=== PATIENT | male | born 1965 | race Hispanic/Latino ===

== ENCOUNTER 2019-06-18 07:56 | Emergency (ER) | payer SELFPAY ==
[2019-06-18 08:54] LABS: #Basophils 0.1 thou/uL (0.0-0.2); #Eosinphils 0.1 thou/uL (0.0-0.7); #Lymphocytes 1.9 thou/uL (1.20-3.40); #Monocytes 0.7 thou/uL (0.11-0.59); #Neutrophils 3.8 thou/uL (1.40-6.50); %Basophils 1.2 % (0.0-1.0); %Eosinophils 1.4 % (0.0-10.0); %Monocytes 10.2 % (0.0-10.0); %Neutrophils 58.2 % (42.0-75.0); Hemoglobin 13.4 g/dL (14.0-18.0); Mean Corpuscular HGB CONC 34.2 g/dL (32.0-36.0); Mean Corpuscular Hemoglobin 34.2 pg (27.0-31.0); Mean Platelet Volume 7.8 fL (7.4-10.4); Platelet Count 220 thou/uL (130-400); RBC Distribution Width 11.1 % (11.5-14.5); Red Blood Cell (RBC) Count 3.92 mill/uL (4.70-6.10); White Blood Cell (WBC) Count 6.6 thou/uL (4.8-10.8)
[2019-06-18 09:20] LABS: ALT (SGPT) 15 U/L (8-55); AST (SGOT) 20 U/L (5-34); Albumin 4.5 g/dL (3.5-5.0); Alkaline Phosphatase 51 U/L (40-110); Anion Gap 8 mmol/L (10-20); BUN (Urea Nitrogen) 6 mg/dL (8.4-25.7); Bilirubin, Total 0.4 mg/dL (0.2-1.2); Calc. Creatinine Clearance 0 mL/min (70-130); Calcium 9.8 mg/dL (7.8-10.44); Carbon Dioxide 28 mmol/L (22-29); Chloride 104 mmol/L (98-107); Estimated GFR-MDRD Greater than 90; Globulin 2.7 g/dL (2.4-3.5); Glucose 92 mg/dL (70-105); Potassium 4.1 mmol/L (3.5-5.1); Protein, Total 7.2 g/dL (6.0-8.3); Sodium 136 mmol/L (136-145)
--- NOTE | 2019-06-18 12:17 | CT ---
CT NECK WITH CONTRAST: Axial tomograms obtained from mid skull through thoracic inlet with IV enhancement. INDICATION: The patient presents with drainage from left ear. 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 There are no prior studies available. FINDINGS: Review of the osseous windows in the sinuses and skull base revealed diffuse opacification of the lef t mastoid air cells. There is opacification in the left middle ear and external auditory canal. Mas titis/otitis should be considered and would explain the patient's ear drainage. There is no evidence of osseous dehiscence or erosion. There is mild mucosal edema in the maxillary sinuses. Paranasal sinuses are aerated. Soft tissue evaluation shows unremarkable and symmetric glands. Submandibular glands are atrophic or absent. Thyroid is small and atrophic. There is abnormal density in the parapharyngeal region of the nasopharynx on the left. This density surrounds the left carotid and involves the left parapharyngeal space and left carotid space. It ext ends inferiorly to the oropharynx and continues inferiorly around the carotid space in the hypopharyn x. There is prominence of the retropharyngeal space superiorly at the nasopharynx and oropharynx region. Hypopharynx and larynx unremarkable. The stem setter space is unremarkable. Review of lymph node levels shows nonspecific subcentimeter submandibular nodes. Small level II jugu lodigastric nodes on the right. No level III or level IV adenopathy. No level V adenopathy. IMPRESSION: 1. Opacification of the left mastoid air cells with abnormal opacification in the middle ear and ext ernal auditory canal. Mastitis/otitis should be considered as the etiology for the ear drainage. 2. There is abnormal density in the parapharyngeal space on the left extending from the nasopharynx inferiorly to involve the oropharynx and upper hypopharynx region. This abnormal density encompasses the left carotid space. There is prominence of the retropharyngeal space. This could represent rec urrent neoplasm. Old studies would be necessary to assess stability or change. POS: OFF
[2019-06-18] MEDS ORDERED: Iopamidol 370 76% 50 ML VIAL FS ONE (13:11)
== END 2019-06-18 12:27 | disposition home or self-care (01) ==
LOC: ERS 07:56
DX: H66.42 Suppurative otitis media, unspecified, left ear (principal); H60.92 Unspecified otitis externa, left ear; H61.22 Impacted cerumen, left ear; J39.2 Other diseases of pharynx; F20.9 Schizophrenia, unspecified
CPT/HCPCS: 36415; 69210; 70491; 80053; 85025; Q9967